=== PATIENT | female | born 1945 | race African-American/Black ===

== ENCOUNTER 2016-08-01 15:54 | Emergency (ER) | payer OTHER ==
[~2016-08-01] VITALS: Ht 157.5 cm; Wt 73.9 kg
[2016-08-01] MEDS ORDERED: NKM (16:19)
[2016-08-01] MEDS ORDERED: ACETAMINOPHEN-1 EAC1 ORAL (16:48)
[2016-08-01] MEDS ORDERED: ROBAXIN-750750 MG PO (16:48)
[2016-08-01] MEDS ORDERED: ACYCLOVIR400 MG ORAL (16:48)
--- NOTE | 2016-08-01 16:54 | Emergency Room Report ---
History of Present Illness General Chief Complaint: Lower Extremity Injury Source: Patient Present Illness HPI Patient present with complaints of right leg discomfort States that for the past 3 days she has had pain radiating from the lateral aspect of the right upper leg across the medial aspect to the upper knee she had this problem 2 years ago which turned out to be sciatic problem Denies any fevers or chills denies any fall or trauma Denies any chest pain or shortness of breath Denies any focal weakness Patient reports a neuropathic type pain as well with tingling and sharp pain in the mid upper thigh Allergies: Coded Allergies: PENICILLIN (Verified Allergy, Unknown, 10/08/14) Uncoded Allergies: PENICILIN (Allergy, Unknown, 10/07/14) Patient History Past Medical History: see triage record Pertinent Family History: none Reviewed Nursing Documentation: PMH: Agreed, PSxH: Agreed Review of Systems All Other Systems: negative except mentioned in HPI Physical Exam Vital Signs Date Time Temp Pulse Resp B/P Pulse Ox O2 Delivery O2 Flow Rate FiO2 08/01/16 16:07 98.1 76 16 118/71 98 Room Air Sp02 EP Interpretation: reviewed, normal General Appearance: well appearing, no apparent distress Head: normocephalic, atraumatic Eyes: bilateral eye EOMI, bilateral eye PERRL ENT: hearing grossly normal, normal pharynx, TMs + canals normal, uvula midline Neck: full range of motion, supple Respiratory: lungs clear Cardiovascular #1: normal peripheral pulses, no edema Gastrointestinal: non tender Musculoskeletal: other - Discomfort on palpation of the right posterior superior iliac crest, no obvious focal weakness Neurologic: alert, oriented x3 Skin: other - There are several patches of mild erythematous lesion on the right inner thigh, not an obvious dermatomal fashion, no obvious blister formation, however still concerning for possible early signs of shingles Medical Decision Making Diagnostic Impression: Primary Impression: sciatic pain Additional Impression: possible shingles ER Course Patient has clinical findings and history in line with likely sciatic discomfort Given the rash that I noticed there is also consideration for early signs of shingles Patient reports that she received the immunization for that And given the appearance at this time she will not be diagnosed with this however I did write a prescription in case the rash became more noticeable And the patient will have close outpatient followup Consideration for other differentials such as DVT is made however no obvious swelling or edema is noted on the right leg Last Vital Signs Date Time Temp Pulse Resp B/P Pulse Ox O2 Delivery O2 Flow Rate FiO2 08/01/16 16:07 98.1 76 16 118/71 98 Room Air Status: unchanged Disposition: HOME, SELF-CARE Condition: Stable Scripts Acyclovir* (ACYCLOVIR*) 400 Mg Tablet 400 MG ORAL FIVE TIMES A DAY for 10 Days, TAB Prov: ISI ARGUETA D.O. 08/01/16 Acetaminophen With Codeine (T#3) (TYLENOL #3 TAB*) Y Tab 1 TAB ORAL Q8H Y for For Pain, #10 TAB Prov: ISI ARGUETA D.O. 08/01/16 Methocarbamol* (ROBAXIN-750*) 750 Mg Tablet 750 MG PO TID, #21 TAB 0 Refills Prov: ISI ARGUETA D.O. 08/01/16 Referrals: [facility],REFERRING (PCP) Patient Instructions: Sciatica, [id number] Additional Instructions: We have discussed possible shingles At this time it is not specific if this is the actual diagnosis Have prescribed medications in case the rash becomes more prominent and noticeable for shingles ISI ARGUETA D.O. August 01, 2016 16:54
[2016-08-01 17:39] VITALS: BP 129/71
== END 2016-08-01 17:57 | disposition home or self-care (01) ==
LOC: EMR 16:25
DX: M54.31 Sciatica, right side (principal); L98.8 Other specified disorders of the skin and subcutaneous tissue; Z88.0 Allergy status to penicillin
CPT/HCPCS: 99284

== ENCOUNTER 2017-02-26 14:44 | Emergency (ER) | payer OTHER ==
[~2017-02-26] VITALS: Ht 152.4 cm; Wt 74.8 kg
[~2017-02-26 14:44] MED LIST: ACETAMINOPHEN-1 EAC1 ORAL; ACYCLOVIR400 MG ORAL; NKM; ROBAXIN-750750 MG PO
[2017-02-26 15:05] VITALS: BP 124/71
[2017-02-26] MEDS ORDERED: ACETAMINOPHEN-1 EAC1 ORAL (15:33)
[2017-02-26 15:40] VITALS: BP 120/70
--- NOTE | 2017-02-26 17:16 | Diagnostic Imaging Report ---
Indication: PAIN Technique: 3 views of the left shoulder Comparison: none Findings: No acute fractures. No dislocations. Joint spaces are preserved Impression:Negative
--- NOTE | 2017-02-26 19:14 | Emergency Room Report ---
History of Present Illness General Chief Complaint: Upper Extremity Injury Source: Patient Present Illness HPI The patient is a 71-year-old female presenting for left shoulder pain which began 2 weeks prior after lifting weights. She states that she was lifting weights above her head when she heard a pop from the left shoulder as well as pain. Pain has decreased but she is still unable to fully move the left shoulder. She denies any pain at this time. She denies any numbness. She denies previous injury to the shoulder or any other symptoms Allergies: Coded Allergies: PENICILLIN (Verified Allergy, Unknown, 10/08/14) Uncoded Allergies: PENICILIN (Allergy, Unknown, 10/07/14) Patient History Past Medical History: see triage record Pertinent Family History: none Reviewed Nursing Documentation: PMH: Agreed, PSxH: Agreed Review of Systems All Other Systems: negative except mentioned in HPI Physical Exam Vital Signs Date Time Temp Pulse Resp B/P (MAP) Pulse Ox O2 Delivery O2 Flow Rate FiO2 02/26/17 14:50 68 16 124/71 99 Room Air 02/26/17 15:05 98.1 Sp02 EP Interpretation: reviewed, normal General Appearance: no apparent distress, alert, GCS 15, non-toxic Head: normocephalic, atraumatic Eyes: bilateral eye normal inspection, bilateral eye PERRL Musculoskeletal: back normal, gait/station normal, decreased range of motion - no AROM past shoulder level, tender - TTP over the L deltoids Neurologic: alert, oriented x3, responsive, motor strength/tone normal, sensory intact, speech normal Psychiatric: judgement/insight normal, memory normal, mood/affect normal, no suicidal/homicidal ideation Skin: normal color, no rash, warm/dry, well hydrated Procedures Splinting Splinting : Consent: Verbal Location: L arm Pre-Made Type: sling Pre-Proc Neuro Vasc Exam: normal Post-Proc Neuro Vasc Exam: normal Patient Tolerated: Well Complications: None Medical Decision Making PA Attestation Dr. Pham is my supervising physician. Patient management was discussed with my supervising physician Diagnostic Impression: Primary Impression: Rotator cuff injury Qualified Codes: S46.002A - Unspecified injury of muscle(s) and tendon(s) of the rotator cuff of left shoulder, initial encounter ER Course The patient is a 71-year-old female presenting for left shoulder pain which began 2 weeks prior after lifting weights. Ddx considered include but not limited to RTC injury, sprain/strain, fracture, contusion PE: NAD Left shoulder has no obvious deformity. No edema or ecchymosis. There is tenderness to palpation over anterior and lateral deltoid. No active range of motion past shoulder level. X-ray of the left shoulder is unremarkable Left shoulder sling was placed and the patient is discharged home with pain medication. She was told she will probably need MRI for further evaluation. ER precautions are given Other X-Ray Diagnostic Results Other X-Ray Diagnostic Results : X-Ray ordered: L shoulder # of Views/Limited Vs Complete: 3 View Indication: Pain EP Interpretation: Yes CEZAR Xray: Interpretation reviewed, by supervising MD, and agrees with findings. Interpretation: no dislocation, no soft tissue swelling, no fractures Impression: No acute disease Electronically Signed by: Vicente Kilgore PA-C Last Vital Signs Date Time Temp Pulse Resp B/P (MAP) Pulse Ox O2 Delivery O2 Flow Rate FiO2 02/26/17 15:40 98.1 70 18 120/70 99 Room Air Status: improved Disposition: HOME, SELF-CARE Condition: Improved Scripts Acetaminophen With Codeine (T#3) (TYLENOL #3 TAB*) Y Tab 1 TAB ORAL Q6HR Y for For Pain, #10 TAB Prov: VICENTE KILGORE 02/26/17 Referrals: [facility],REFERRING (PCP) Patient Instructions: Rotator Cuff Injury Additional Instructions: I discussed my findings with the patient. All questions and concerns have been answered. Treatment and medication compliance have been addressed. Return to ED if pain remains or worsens, numbness or tingling occurs, new rash is noticed, fever is noticed, or if needed for any reason. Patient verbalized understanding of discharge instructions. Please followup with your primary doctor and orthopedics as soon as possible. You are advised you will likely need MRI and further treatment VICENTE KILGORE Feb 26, 2017 19:14
== END 2017-02-26 15:43 | disposition home or self-care (01) ==
LOC: EMR 15:40
DX: S46.002A Unspecified injury of muscle(s) and tendon(s) of the rotator cuff of left shoulder, initial encounter (principal); Z88.0 Allergy status to penicillin; X50.0XXA Overexertion from strenuous movement or load, initial encounter; Y93.B9 Activity, other involving muscle strengthening exercises; Y92.9 Unspecified place or not applicable
CPT/HCPCS: 99283